=== PATIENT | male | born 1985 | race Caucasian/White ===

== ENCOUNTER 2019-01-05 06:31 | Day surgery (SDC) | payer BC ==
[2019-01-04 15:32] VITALS: BMI 21.1
[2019-01-05] MEDS ORDERED: Oxymetazoline HCl 0.05% ( 15 ML ) ONE ×2 (07:46→08:31)
[2019-01-05] MEDS ORDERED: methylPREDNISolone Acetate 40 mg/ml Vial ONE (08:31)
[2019-01-05] MEDS ORDERED: Lidocaine 1% w/Epinephrine 1:100K 20 ML VIAL ONE (08:31)
[2019-01-05] MEDS ORDERED: Bacitracin Zinc Ointment 30 gm TUBE ONE (08:31)
[2019-01-05] MEDS ORDERED: Fentanyl 250 MCG/5 ML VIAL ONE (08:49)
[2019-01-05] MEDS ORDERED: Fentanyl 100 MCG/2 ML VIAL ONE (10:06)
[2019-01-05] MEDS ORDERED: Morphine 4 MG/ML VIAL ONE (10:18)
[2019-01-05] MEDS ORDERED: Morphine 2 MG/ML SYRINGE ONE (10:32)
[2019-01-05] MEDS ORDERED: hydrALAZINE 20 MG/ML VIAL ONE (10:54)
[2019-01-05] MEDS ORDERED: Lidocaine 1% PF 5 ML VIAL ONE (11:47)
[2019-01-05] MEDS ORDERED: PROPOFOL 200 MG/20 ML VIAL ONE (11:47)
[2019-01-05] MEDS ORDERED: Rocuronium Bromide 10 MG/ML (10ML VIAL) ONE (11:47)
[2019-01-05] MEDS ORDERED: Ondansetron PF 4 MG/2 ML Vial ONE (11:47)
[2019-01-05] MEDS ORDERED: Promethazine HCl 25 MG/ML VIAL ONE (12:05)
[2019-01-05] MEDS ORDERED: Sodium Chloride 0.9% 10 ML ONE (12:05)
[2019-01-05] MEDS ORDERED: Hydrocodone-Acetamin 15 ML UDCUP ONE (12:05)
--- NOTE | 2019-01-06 08:37 | OP ---
DATE OF PROCEDURE: 01/05/2019 PREOPERATIVE DIAGNOSES: 1. Chronic rhinosinusitis. 2. Nasal septal deviation. 3. Bilateral inferior turbinate hypertrophy. POSTOPERATIVE DIAGNOSES: 1. Chronic rhinosinusitis. 2. Nasal septal deviation. 3. Bilateral inferior turbinate hypertrophy. PROCEDURES PERFORMED: 1. Bilateral endoscopic sinus surgery, total ethmoidectomies. 2. Bilateral endoscopic sinus surgery, maxillary antrostomies. 3. Bilateral endoscopic sinus surgery, frontal sinusotomies. 4. Bilateral endoscopic sinus surgery, sphenoidotomies. 5. Nasal septoplasty. 6. Bilateral inferior turbinate submucosal resection. ESTIMATED BLOOD LOSS: 50 mL. COMPLICATIONS: None. ANESTHESIA: GETA. PROCEDURE IN DETAIL: Patient was taken to the operating room and placed supine on the table. General endotracheal anesthesia was obtained by the anesthesia staff. Tube was secured in the left lower lip. Patient was then placed in the beach chair position, and Afrin pledgets were placed in the nasal cavity. Injections of 1% lidocaine with 1:100,000 epinephrine were made into the nasal septum as well as the inferior turbinates. Patient was then prepped and draped in standard surgical fashion for nasal surgery. Following this, the Afrin pledgets were removed. A [place] incision was made on the left nasal septum. Submucoperichondrial dissection was performed. The deviated portions of the septum included portions of the cartilage and the bony septum. These isolated areas were removed using 3 cutting rongeurs. There was noted to be a large dorsal and caudal strut, left intact for support of the nose. The mucoperichondrial flaps were then reapproximated using a 4-0 gut stitch. Any straight pieces of cartilage were crushed prior to this and placed between the mucoperichondrial flaps. Following this, the inferior turbinates were then punctured with a submucosal coblation wand, and submucosal coblations were performed of multiple areas of the inferior portion of the anterior inferior turbinate. Please note that the submucosal microdebrider was used to submucosally resect the anterior and inferior portions of the inferior turbinates. Following this, the 0-degree endoscope was advanced into the middle meatus. The middle turbinate was gently medialized using a [place] elevator. The uncinate process was then visualized bilaterally. The uncinate was then anteriorly fractured using a ball-ended probe and the uncinate process was then removed using the 0-degree microdebrider and the up-biting [place] forceps. Following this, the natural maxillary sinus ostia were identified and was gently widened using a ball-ended probe. Following this, the curved microdebrider and the straight [place] forceps were used to widen the maxillary sinus ostia bilaterally. Following this, the ethmoidal bulla was identified and was punctured on its medial and inferior aspect and was removed using the microdebrider and the up-biting [place] forceps bilaterally. Following this, the grand lamella was identified and was punctured into the posterior ethmoidal cells. Working from posterior to anterior, the ethmoidal cells were opened using the 0-degree microdebrider and up-biting [place] forceps bilaterally. Following this, the sphenoid sinuses were approached through the previous ethmoidectomies, where the attachment to the superior turbinate to the posterior nasal wall was identified. Staying just medial and inferior to this landmark, the sphenoid sinus ostia were punctured using a [place] tip suction bilaterally. Following this, the 0-degree microdebrider was used to widen the sphenoidotomies medially and inferiorly. Following this, the 45-degree scope and the curved microdebrider were then used to further open the anterior ethmoidal cells and expose the frontal sinus ostia bilaterally. The frontal sinus ostia were then widened bilaterally using the curved microdebrider. The patient tolerated the procedure well. Nasal cavity was irrigated. Mirapex was placed within the middle meatus. [place] splints were placed and secured. Job ID: [id number]
== END 2019-01-05 13:00 | disposition home or self-care (01) ==
LOC: SDC 06:31
PROVIDERS: ATTEND Otolaryngology Plastic Surgery within the Head & Neck
PROC: 09TL0ZZ Resection of Nasal Turbinate, Open Approach (ICD-10-PCS; principal; 2019-01-05)
PROC: 09QT8ZZ Repair Left Frontal Sinus, Via Natural or Artificial Opening Endoscopic (ICD-10-PCS; principal; 2019-01-05)
PROC: 09TV8ZZ Resection of Left Ethmoid Sinus, Via Natural or Artificial Opening Endoscopic (ICD-10-PCS; principal; 2019-01-05)
PROC: 099W8ZZ Drainage of Right Sphenoid Sinus, Via Natural or Artificial Opening Endoscopic (ICD-10-PCS; principal; 2019-01-05)
PROC: 099X8ZZ Drainage of Left Sphenoid Sinus, Via Natural or Artificial Opening Endoscopic (ICD-10-PCS; principal; 2019-01-05)
PROC: 09BM0ZZ Excision of Nasal Septum, Open Approach (ICD-10-PCS; principal; 2019-01-05)
PROC: 09QS8ZZ Repair Right Frontal Sinus, Via Natural or Artificial Opening Endoscopic (ICD-10-PCS; principal; 2019-01-05)
PROC: 09TU8ZZ Resection of Right Ethmoid Sinus, Via Natural or Artificial Opening Endoscopic (ICD-10-PCS; principal; 2019-01-05)
DX: J32.8 Other chronic sinusitis (principal); J34.2 Deviated nasal septum; J34.3 Hypertrophy of nasal turbinates; I10 Essential (primary) hypertension; E78.00 Pure hypercholesterolemia, unspecified; Z79.899 Other long term (current) drug therapy
CPT/HCPCS: J0360; J1030; J2001; J2270; J2405; J2550; J2704; J3010; J3490